=== PATIENT | male | born 1955 | race Caucasian/White ===

== ENCOUNTER 2017-03-20 15:37 | Emergency (ER) | payer MEDICARE ==
[~2017-03-20] VITALS: Ht 177.8 cm; Wt 100.0 kg
[~2017-03-20 15:37] MED LIST: ACCUPRIL20 MG OR; AMLODIPINE5 MG PO; ASPIRIN EC325 MG PO; ASPIRIN325 MG PO; ATROVENT I0.5 MG/VIA IN; ATROVENT IN; ATROVENT NASAL0.03 % NAB; BENADRYL25 MG OR; BENAZEPRIL10 MG PO; CITALOPRAM PO; CITALOPRAM20 MG PO; CLONAZEPAM0.5 MG PO; CLONIDINE0.1 MG PO; CYCLOBENZAPR10 MG PO; DILAUDID8 MG PO; ENALAPRIL20 MG OR; FLEXERIL PO; FLONASE0.05 %; FLUOXETINE20 MG PO; GLIMEPIRIDE2 MG PO; GLYBURIDE PO; HYDROCHLORO25 MG/TAB PO; IBUPROFEN600 MG PO; IBUPROFEN800 MG OR; KLONOPIN0.5 MG PO; LYRICA100 MG PO; LYRICA50 MG PO; METFORMIN1000 MG PO; METFORMIN500 MG PO; NASAL SPRAY; NIFEDIPINE10 MG OR; NITROSTAT0.4 MG PO; NYSTATIN TOP; OPANA ER40 M1 PO; OXYCONTIN PO; OXYIR5 MG OR; PRILOSEC20 MG/CAP PO; [UNRECOGNIZED DRUG - REMARK]
[2017-03-20 17:02] LABS: HEMATOCRIT 45.4 % (39.0-50.0); HEMOGLOBIN 15.9 g/dl (14.0-18.0); IMMATURE GRANULOCYTES 0.5 % (0.0-1.0); MEAN CELL VOLUME 79.2 fL CALC (80.0-100.0); MEAN CORPUSCULAR HGB 27.7 pG CALC (26.0-32.0); NEUT# 10.34 thou/uL (1.82-7.42); RED BLOOD COUNT 5.73 mill/uL (4.70-6.10); RED CELL DISTRI WIDTH 14.7 % (11.5-15.5)
[2017-03-20 17:16] LABS: ALBUMIN 4.7 g/dL (3.2-5.0); BILIRUBIN, TOTAL 0.7 mg/dL (0.0-1.4); CALCIUM 9.3 mg/dL (8.4-10.2); CREATININE 1.5 mg/dL (0.7-1.3); POTASSIUM 3.8 mmol/l (3.5-5.1); TOTAL PROTEIN 7.6 g/dL (6.3-8.2)
[2017-03-20 20:07] VITALS: BP 131/83
[2017-03-20] MEDS ORDERED: CIPROFLOXACN500 MG PO (20:07)
== END 2017-03-20 20:22 | disposition home or self-care (01) ==
LOC: ED 15:37
PROVIDERS: Emergency Medicine
DX: F10.129 Alcohol abuse with intoxication, unspecified (principal); Y90.8 Blood alcohol level of 240 mg/100 ml or more; R41.82 Altered mental status, unspecified; E87.0 Hyperosmolality and hypernatremia; I10 Essential (primary) hypertension; I25.10 Atherosclerotic heart disease of native coronary artery without angina pectoris

== ENCOUNTER 2017-05-08 10:00 | Emergency (ER) | payer MEDICARE ==
[~2017-05-08 10:00] MED LIST changes: +CIPROFLOXACN500 MG PO
== END 2017-05-08 11:15 | disposition expired ==
LOC: ED 10:00
DX: I46.9 Cardiac arrest, cause unspecified (principal); I10 Essential (primary) hypertension; I25.10 Atherosclerotic heart disease of native coronary artery without angina pectoris; E11.9 Type 2 diabetes mellitus without complications